=== PATIENT | male | born 1970 | race Caucasian/White ===

== ENCOUNTER 2019-05-06 06:12 | Day surgery (SDC) | payer OTHER ==
[~2019-05-06] VITALS: Ht 182.9 cm; Wt 94.0 kg
[~2019-05-06 06:12] MED LIST: Glucosamine Ch1 EAC3 PO; Norco 5-325 Ta1 EACH PO
[2019-05-06] MEDS ORDERED: Garlic1 EAC1 (07:01)
[2019-05-06] MEDS ORDERED: ASCO500 (07:01)
[2019-05-06] MEDS ORDERED: ERGO400 (07:01)
[2019-05-06] MEDS ORDERED: FISH OIL + D31 EACH (07:01)
--- NOTE | 2019-05-06 08:38 | NUR ---
05/06/19 0838 Briana Angel PATIENT IN RECLINER, IN ROOM. NO C/O PAIN OR NAUSEA, TOLERATING PO FLUIDS. VSS. WILL DISCHARGE HOME.
== END 2019-05-06 09:03 | disposition home or self-care (01) ==
LOC: ORSCSDS 06:12
PROVIDERS: Orthopaedic Surgery
PROC: 0JBF0ZZ Excision of Left Upper Arm Subcutaneous Tissue and Fascia, Open Approach (ICD-10-PCS; principal; 2019-05-06 07:30)
PROC: 0LN40ZZ Release Left Upper Arm Tendon, Open Approach (ICD-10-PCS; principal; 2019-05-06 07:30)
DX: M77.12 Lateral epicondylitis, left elbow (principal)
CPT/HCPCS: J0690; J1100; J1885; J2250; J2405; J2704; J3010; J7120

== ENCOUNTER → 2021-11-15 | Outpatient (CLI) | payer OTHER ==
[~2021-11-15] MED LIST changes: +ASCO500; +ERGO400; +FISH OIL + D31 EACH; +Garlic1 EAC1
== END | disposition home or self-care (01) ==
LOC: LAB 17:09 → LAB SHORT 17:09
DX: L02.91 Cutaneous abscess, unspecified (principal)
CPT/HCPCS: 87070; 87075; 87077; 87147; 87186; 87205